=== PATIENT | female | born 1960 | race Caucasian/White ===

== ENCOUNTER 2016-12-20 13:37 | Emergency (ER) | payer OTHER ==
[~2016-12-20] VITALS: Ht 165.1 cm; Wt 66.2 kg
[~2016-12-20 13:37] MED LIST: CLON.5 PO; PARO10TA PO; QUET1TAB66 PO
[2016-12-20 13:43] VITALS: BP 132/83; PULSE 94; RESP 16; TEMP 97.9; O2SAT 98
[2016-12-20] MEDS ORDERED: LINA145C PO (13:53)
[2016-12-20] MEDS ORDERED: CYCL1TAB29 PO (13:53)
[2016-12-20] MEDS ORDERED: QUET400XR PO (13:53)
[2016-12-20] MEDS ORDERED: HYDR-3535 PO (13:53)
[2016-12-20] MEDS ORDERED: DIAZ10 PO (13:53)
[2016-12-20] MEDS ORDERED: AMBI10TA PO (13:54)
[2016-12-20] MEDS ORDERED: IBUPROFEN 600 MG TAB PO ONE (14:15)
--- NOTE | 2016-12-20 15:17 | RADRPT ---
EXAM DATE/TIME: 12/20/2016 14:43 [facility] COMPARISON: No previous studies available for comparison. INDICATIONS : Left foot pain after tripping MEDICAL HISTORY : None. SURGICAL HISTORY : None. ENCOUNTER: Initial ACUITY: 2 days PAIN SCORE: 7/10 LOCATION: Left lateral foot FINDINGS: There is a nondisplaced fracture at the base of the fifth metatarsal. Bony mineralization is normal. Joint spaces are maintained. CONCLUSION: 1. Fracture base of the fifth metatarsal Chaparro Oliver MD on December 20, 2016 at 15:15 Board Certified Radiologist. This report was verified electronically.
--- NOTE | 2016-12-20 15:17 | RADRPT ---
EXAM DATE/TIME: 12/20/2016 14:43 [facility] COMPARISON: No previous studies available for comparison. INDICATIONS : Left ankle pain after tripping. MEDICAL HISTORY : None. SURGICAL HISTORY : None. ENCOUNTER: Initial ACUITY: 2 days PAIN SCORE: 7/10 LOCATION: Left lateral ankle FINDINGS: There is a nondisplaced fracture at the base of the fifth metatarsal. An inferior calcaneal spur is p resent. Joint spaces are maintained. CONCLUSION: 1. Fracture fifth metatarsal Chaparro Oliver MD on December 20, 2016 at 15:15 Board Certified Radiologist. This report was verified electronically.
--- NOTE | 2016-12-20 15:34 | PD ---
HPI . Left foot pain Chief Complaint: Injury Time Seen by Provider: 14:04 Travel History International Travel<30 days: No Contact w/Intl Traveler<30days: No Traveled to known affect area: No History of Present Illness HPI 56-year-old female presents emergency department for evaluation of left foot pain 3 days. Patient states she was walking in her home and landed funny on her left foot. She states it has been painful ever since. She denies falling during that event. She denies any other injury or complaint except for the left foot pain. The foot is painful to palpation. Has limited range of motion to dorsi and plantar flexion. There is ecchymosis noted from the second to the fifth digit extending upward on the dorsal aspect of the foot. There is no erythema, mild edema. Patient states she has been wrapping her foot with an Nixon wrap, applying ice, taking Lortab and elevating the foot since the injury occurred. The pain has been persistent despite these interventions. The patient is ambulatory from triage with a limp. The patient denies any major medical history except for chronic sinusitis. She has no known allergies. PFSH Past Medical History ADHD: Yes Bipolar Disorder: Yes Anxiety: Yes Depression: Yes Headaches: Yes Respiratory: Yes (sinus problems) Immunizations Current: Yes Tetanus Vaccination: > 5 Years Influenza Vaccination: No ?: Not Menopausal: Yes Past Surgical History Genitourinary Surgery: Yes (bladder stimulator placed) Other Surgery: Yes (BREAST IMPLANTS ) Social History Alcohol Use: No Tobacco Use: No (quit 15 yrs ago 1 ppd) Substance Use: No Allergies-Medications (Allergen,Severity, Reaction): Coded Allergies: No Known Allergies (Verified Allergy, Unknown, 12/20/16) Reported Meds & Prescriptions Reported Meds & Active Scripts Active Reported Ambien (Zolpidem Tartrate) 10 Mg Tab 10 Mg PO HS PRN Linzess (Linaclotide) 145 Mcg Cap 145 Mcg PO DAILY Flexeril (Cyclobenzaprine HCl) 10 Mg Tab 10 Mg PO TID PRN Seroquel XR (Quetiapine Fumarate) 400 Mg Tab 400 Mg PO HS Valium (Diazepam) 10 Mg Tab 10 Mg PO TID PRN Lortab (Hydrocodone-Acetaminophen) 10-325 Mg Tab 1 Tab PO QID PRN Review of Systems Except as stated in HPI: all other systems reviewed are Neg Physical Exam Narrative GENERAL: Well-nourished, well-developed 56-year-old female patient in no acute distress. Nontoxic appearing. SKIN: Focused skin assessment warm/dry. HEAD: Normocephalic. Traumatic. EYES: No scleral icterus. No injection or drainage. NECK: Supple, trachea midline. No JVD or lymphadenopathy. CARDIOVASCULAR: Regular rate and rhythm without murmurs, gallops, or rubs. RESPIRATORY: Breath sounds equal bilaterally. No accessory muscle use. GASTROINTESTINAL: Abdomen soft, non-tender, nondistended. MUSCULOSKELETAL: Ecchymosis on the left foot from the second digit to the fifth digit extending upward on the dorsal aspect of the foot. Mild edema or decreased range of motion with plantar and dorsiflexion. BACK: Nontender without obvious deformity. No CVA tenderness. Data Data Last Documented VS Vital Signs Date Time Temp Pulse Resp B/P (MAP) Pulse Ox O2 Delivery O2 Flow Rate FiO2 12/20/16 15:38 84 16 100/74 (83) 95 12/20/16 13:43 97.9 Orders Orders Ankle, Complete (Pep2hol) (12/20/16 14:14) Foot, Complete (Lvt1ily) (12/20/16 14:14) Ice/Cold Pack (12/20/16 14:14) Ibuprofen (Motrin) (12/20/16 14:15) MDM Medical Decision Making Medical Screen Exam Complete: Yes Emergency Medical Condition: Yes Differential Diagnosis The ventral diagnoses include but not limited to foot fracture, foot contusion, ankle sprain Narrative Course 56-year-old female presents for evaluation of left foot pain after landing on it in an awkward position while walking at home. Patient denies falling during this event. Patient has no other physiological complaints at this time. X-ray of the left foot is ordered and pending. Ice is placed on left foot. Motrin is ordered to help with pain and swelling. X-ray of the left foot shows fracture of the fifth metatarsal bone. Dr. Douglas, the administrative resident on-call was contacted regarding recommendations for treatment. Dr. Douglas recommends and ankle motion boot to immobilize the left foot. She will be discharged home with instructions to rest, ice, utilize the boot when ambulatory and elevate her foot when resting. Patient will be given information to follow up with Dr. Douglas and her primary care. Patient requested a medication help reduce inflammation in her nose from her chronic sinusitis while she is here in the ED. Patient will be given a prescription for Flonase. Diagnosis Primary Impression: Fracture of fifth metatarsal bone of left foot Qualified Codes: S92.355A - Nondisplaced fracture of fifth metatarsal bone, left foot, initial encounter for closed fracture Patient Instructions: Foot Fracture in Adults (DC), General Instructions Additional Instructions: Please return to emergency department if your symptoms return or worsen. Follow up with your primary care provider. May use [id number] Motrin as needed for pain and inflammation. May use ice as needed for pain and inflammation Med/Other Pt SpecificInfo: Prescription(s) given Scripts Fluticasone Nasal [place] (Flonase Nasal [place]) 50 Mcg/Act [place] 100 MCG EACH NARE BID for Allergies, #1 BOTTLE 0 Refills Prov: Mabel Pérez 12/20/16 Disposition: 01 DISCHARGE HOME Condition: Stable Mabel Pérez Dec 20, 2016 15:34
[2016-12-20 15:38] VITALS: BP 100/74; PULSE 84; RESP 16; O2SAT 95
[2016-12-20] MEDS ORDERED: FLUT1SPR5 EACH NARE (16:02)
== END 2016-12-20 16:57 | disposition home or self-care (01) ==
LOC: PHEFT 13:37
DX: S92.355A Nondisplaced fracture of fifth metatarsal bone, left foot, initial encounter for closed fracture (principal); X50.3XXA Overexertion from repetitive movements, initial encounter; Y93.01 Activity, walking, marching and hiking; Y92.009 Unspecified place in unspecified non-institutional (private) residence as the place of occurrence of the external cause
CPT/HCPCS: 29515; 73610; 73630; 99283; L3260